=== PATIENT | male | born 1955 | race Caucasian/White ===

== ENCOUNTER 2018-04-22 17:45 | Emergency (ER) | payer BC ==
[~2018-04-22] VITALS: Ht 182.9 cm; Wt 83.9 kg
[2018-04-22] MEDS ORDERED: CIALIS (17:52)
--- NOTE | 2018-04-22 18:08 | NUR ---
PT REFUESES BLOOD DRAW AND HEPLOCK
--- NOTE | 2018-04-22 18:10 | NUR ---
PT REFUSES X-RAY.
--- NOTE | 2018-04-22 18:20 | NUR ---
PT TALKING TO ER MD REGARDING PLAN OF CARE. PT STILL WANTS TO LEAVE AMA.
--- NOTE | 2018-04-22 18:23 | NUR ---
PT SAYS THAT HE FEELS GOOD, REFUSES ANY INTERVENTION, WALKS OUT OF ER WITH STEADY GAIT. PT IN THE WAITING ROOM.
--- NOTE | 2018-04-22 18:24 | NUR ---
Patient does not wish to proceed with medical care recommended by Dr. Brittany ANGEL ). Patient given information related to possible complications, up to and including , which could occur as a result of leaving the hospital at this time. Patient verbalizes understanding of risks involved due to leaving against medical advice. Patient has signed AMA form.
== END 2018-04-22 18:29 | disposition left against medical advice (07) ==
LOC: ER 17:48
DX: R55 Syncope and collapse (principal)
CPT/HCPCS: 93005; A4663